=== PATIENT | male | born 1955 | race Caucasian/White ===

== ENCOUNTER → 2020-11-25 | Outpatient (REF) ==
--- NOTE | 2020-11-25 20:27 | REP ---
INDICATION: JACKSON COMPARISON: None. TECHNIQUE: AP, lateral, coned-down views of the lumbar spine. FINDINGS: Three views of the lumbosacral spine demonstrate satisfactory alignment and lordosis without acute fracture / compression injury or subluxation. Mild generalized age-related changes with minimal marginal spurring/osteophyte formation noted at multiple levels. Very subtle disc space narrowing at L5-S1 cannot be excluded. IMPRESSION: 1. No acute fracture / compression injury or subluxation. 2. Very mild age-related degenerative changes suggested. <Electronically signed by Siddhartha Amaya > 11/25/202023
== END ==
LOC: M PLAIMG 13:59
PROVIDERS: ATTEND Internal Medicine
DX: M25.78 Osteophyte, vertebrae (principal)